=== PATIENT | female | born 1985 | race Caucasian/White ===

== ENCOUNTER → 2020-04-08 00:01 | Outpatient (BNVA) | payer BC, SELFPAY | PROVIDERS: PCP Nurse Practitioner Family; Visit Provider Nurse Practitioner Family | DX: G43.909 Migraine, unspecified, not intractable, without status migrainosus (principal); E55.9 Vitamin D deficiency, unspecified; R53.83 Other fatigue; G43.409 Hemiplegic migraine, not intractable, without status migrainosus | CPT/HCPCS: 80053; 80061; 82306; 83036; 84439; 84443; 84481; 85025 ==

== ENCOUNTER → 2020-10-25 11:46 | Outpatient (BNVA) | payer SELFPAY | PROVIDERS: PCP Nurse Practitioner Family; Visit Provider Family Medicine | DX: R42 Dizziness and giddiness (principal) | CPT/HCPCS: 80053; 83735; 84443; 85025 ==

== ENCOUNTER 2020-11-07 11:12 | Outpatient (CLI) | payer SELFPAY ==
--- NOTE | 2020-11-07 11:45 | MR_ITS ---
WS: [id number] MRI BRAIN WITHOUT CONTRAST HISTORY: R42 - Dizziness and giddiness COMPARISON: 10/06/2017 TECHNIQUE: Diffusion imaging, multiplanar T1, T2 and FLAIR imaging obtained. No evidence for acute infarct or hemorrhage. Leach-white matter differentiation is normal. There is diffuse subcentimeter FLAIR and T2 signal hyperintensities within the temporal lobe white ma tter. Distribution is unremarkable. Not specific for demyelinating disease. No hemorrhage or diffusio n abnormality. Ventricles and extra-axial spaces are normal. No inferior displacement of cerebellar tonsils. The sella turcica and pituitary gland are unremarkabl e. Posterior fossa is also unremarkable. Dural venous sinuses and [place] demonstrate no abnormality on this unenhanced studies. Paranasal sinuses: Clear. Mastoid air cells: Normal. Calvarium and scalp: Intact. MR/MR head wo con* [id number] IMPRESSION: 1. No acute infarct. 2. Subcentimeter bilateral temporal lobes hyperintensities are very minimal. N ot specific for demyelinating disease. 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 Otherwise negative.
== END 2020-11-07 11:13 | disposition home or self-care (01) ==
LOC: RADSHAW 11:15
PROVIDERS: PCP Nurse Practitioner Family; Visit Provider Family Medicine
DX: R42 Dizziness and giddiness (principal)
CPT/HCPCS: 70551